=== PATIENT | male | born 1960 | race Two or more races ===

== ENCOUNTER 2023-04-06 08:10 | Day surgery (SDC) | payer MEDICARE ==
[~2023-04-06 08:10] MED LIST: LACTATED RINGERS 1,000 ML IV SCH
[2023-04-06 09:01] LABS: Glucose,Whole Blood 94 mg/dL (70-110)
[2023-04-06 09:08] VITALS: TEMP 97.5
[2023-04-06] MEDS ORDERED: PROPOFOL 10 MG/ML 20 ML VIAL IV ONE (09:40)
--- NOTE | 2023-04-06 10:07 | P.PCN ---
Date of Procedure: 04/06/23 Procedure(s) Performed: BRIEF HISTORY: Patient is a 62-year-old pleasant while male scheduled for an elective colonoscopy as a part of screening for colon cancer/positive cologuard. PROCEDURE PERFORMED: Colonoscopy with snare polypectomy. PREOPERATIVE DIAGNOSIS: Screening for colon cance/positive cologuard. IV sedation per Anesthesia. PROCEDURE: After informed consent was obtained, the patient, was brought into the endoscopy unit. IV sedation was administered by Anesthesia under continuous monitoring. Digital rectal examination was normal. Initially the Olympus CF-160 flexible video colonoscope was then inserted in the rectum, gradually advanced into the cecum without any difficulty. Careful examination was performed as the scope was gradually being withdrawn. Ileocecal valve and the appendiceal orifice were visualized and appeared normal. Prep was fair.. Mucosa of the cecum, a normal. The ascending colon there was a 1 cm polyp removed by snare polypectomy. Rest of the ascending colon, transverse colon, descending colon, appeared normal. The sigmoid there was a 2 cm pancreatic polyp removed by snare polypectomy. This was located at 40 cm from the anal verge. Rest of the sigmoid colon, and rectum appeared normal. Retroflexion was performed in the rectum and no lesions were seen. The patient tolerated the procedure well. IMPRESSION: 1 cm ascending colon polyp status post polypectomy 2 cm pedunculated sigmoid: Polyp status post polypectomy RECOMMENDATIONS: Findings of this examination were discussed with the patient as well as his family. He was advised to follow with the biopsy results. If the biopsies adenoma he can have a repeat colonoscopy in 3.
[2023-04-06 10:29] VITALS: BP 126/71; PULSE 77; RESP 17
== END 2023-04-06 11:07 | disposition home or self-care (01) ==
LOC: ORWHC2ENDO 08:10
PROVIDERS: ATTEND Internal Medicine Gastroenterology
DX: D12.2 Benign neoplasm of ascending colon (principal); D12.5 Benign neoplasm of sigmoid colon; I10 Essential (primary) hypertension; E78.5 Hyperlipidemia, unspecified; E11.9 Type 2 diabetes mellitus without complications; Z79.899 Other long term (current) drug therapy
CPT/HCPCS: 88305; 45385; J2704